=== PATIENT | female | born 1995 | race Caucasian/White ===

== ENCOUNTER 2022-11-09 08:34 | Emergency (ER) | payer OTHER ==
[~2022-11-09] VITALS: Ht 160 cm; Wt 55.8 kg
[2022-11-09 08:40] VITALS: BP_SYST 128
--- NOTE | 2022-11-09 08:45 | NUR ---
ER DR. DARNELL EXAMINING PT
--- NOTE | 2022-11-09 08:48 | NUR ---
Patient to ER bed H1 to gown for evaluation. Side rails up. Report given to RICH CASILLAS.
[2022-11-09] MEDS ORDERED: MAG HYDROX/AL HYDROX/SIMETH 30 ML, DICYCLOMINE HCL 20 MG, LIDOCAINE VISCOUS 2% 15ML (PO... PO ONE ×3 (09:00)
[2022-11-09] MEDS ORDERED: KETOROLAC TROMETHAMINE 60 MG/2 ML VIAL IM ONE (09:00)
--- NOTE | 2022-11-09 09:00 | NUR ---
Pt bib parent from home CC chest pain. Pt denies gastric pain, denies coughing, denies SOB, pt is sitting without signs of distress. Pt is speaking full sentences [id number] skin intact, no signs of trauma. Pulses WNL.
[2022-11-09] MEDS ORDERED: NAPR-688 PO (09:16)
[2022-11-09] MEDS ORDERED: CLON0.5T4 PO (09:16)
--- NOTE | 2022-11-09 09:30 | NUR ---
Pt denies chest pain at this time. refuses gastro medication offered, pt states anxiety inducing pain.
--- NOTE | 2022-11-09 09:36 | NUR ---
Patient given written and verbal discharge instructions and verbalizes understanding. ER MD discussed with patient the results and treatment provided. Patient in stable condition. ID arm band removed. Rx of Klonopin and naproxen given. Patient educated on pain management and to follow up with PMD. Opportunity for questions provided and answered. Medication side effect fact sheet provided.
[2022-11-09 09:42] VITALS: BP_SYST 128
== END 2022-11-09 09:42 | disposition home or self-care (01) ==
LOC: SED 08:34
DX: R07.2 Precordial pain (principal); K21.9 Gastro-esophageal reflux disease without esophagitis; Z79.899 Other long term (current) drug therapy
CPT/HCPCS: 71045; 93005; 99283